=== PATIENT | female | born 1955 | race Two or more races ===

== ENCOUNTER 2017-04-12 00:07 | Inpatient (IN) | payer BC ==
[2017-04-12] VITALS (10 sets, daily range): BP systolic 157–188; BP diastolic 67–79; PULSE 72–95; RESP 16–18; TEMP 98.2; Ht 165.1 cm; Wt 104.5 kg
[~2017-04-12] VITALS: Ht 165.1 cm; Wt 104.5 kg
[~2017-04-12 00:07] MED LIST: ADV25050 INH; AMARYL; ASPI81TA3 PO; CYCL-319 PO; HYDR-906 PO; IBUP400T22 PO; INSULIN 70/30; MELOXICAM; MICARDIS; SINGULAR; VERAPAMIL; [UNRECOGNIZED DRUG - OTHER]
[2017-04-12 00:57] LABS: BASOPHILS % 0.5 % (0.0-2.0); EOSINOPHILS % 0.1 % (0.0-7.0); HEMOGLOBIN 10.4 g/dl (12.0-16.0); LYMPHOCYTES # 0.8 10^3/ul (0.8-2.9); LYMPHOCYTES % 9.2 % (15.0-51.0); MEAN CORPUSCULAR HGB CONC 31.5 g/dl (32.0-37.0); MEAN CORPUSCULAR VOLUME 85.7 fl (82.0-101.0); MEAN PLATELET VOLUME 10.7 fl (7.4-10.4); MONOCYTE # 0.1 10^3/ul (0.3-0.9); MONOCYTES % 1.4 % (0.0-11.0); NEUTROPHIL # 7.7 10^3/ul (1.6-7.5); PLATELET COUNT 361 10^3/UL (140-415); RED BLOOD COUNT 3.85 10^6/ul (4.20-5.40); RED CELL DISTRIBUTION WIDTH 13.7 % (11.5-14.5); WHITE BLOOD COUNT 8.7 10^3/ul (4.8-10.8)
[2017-04-12 01:16] LABS: INR 0.88; PARTIAL THROMBOPLASTIN TIME 23.8 Sec (25.0-35.0); PROTIME 11.9 Sec (12.2-14.2); PT RATIO 0.9
[2017-04-12 01:23] LABS: ALBUMIN/GLOBULIN RATIO 0.95; BILIRUBIN,INDIRECT 0.2 mg/dl (0-1.1); BILIRUBIN,TOTAL 0.2 mg/dl (0.2-1.3); CALCIUM 10.2 mg/dl (8.4-10.2); CREATININE 1.17 mg/dl (0.44-1.00); POTASSIUM 4.5 mmol/L (3.5-5.1); TOTAL PROTEIN 8.2 g/dl (6.1-8.1)
--- NOTE | 2017-04-12 01:26 | RADRPT ---
PROCEDURE: CT Brain without contrast. CLINICAL INDICATION: Focal neurological deficit. TECHNIQUE: A CT of the brain was performed on a multislice detector CT scanner utilizing axial sec tions from the skull base through the vertex without contrast. Images were reviewed on a [facility] [employer] PACS workstation. Exam CTDlvol = 45 mGy and DLP = 720 mGy-cm. One of the following 3 dose red uction techniques were used: Automated exposure control; adjustment of the mA and/or kV according to patient size; or use of iterative reconstruction technique. COMPARISON: Fourth 38 20:15 FINDINGS: There is age appropriate central and peripheral atrophy. There is no midline shift. There is a mil d degree of supratentorial periventricular and subcortical white matter hypodensities. There is no definite acute stroke. There is small old right thalamic lacunar infarct. There is no intracranial hemorrhage or abnormal extra-axial fluid collection. Visualized paranasal sinuses are clear. IMPRESSION: 1. No acute intracranial abnormality. 2. Small old right thalamic lacunar infarct. 3. Nonspecific white matter changes most commonly seen with microvascular ischemic disease. Findings reported to Dr. Zepeda on 04/12/2017 1:24:56 AM. RPTAT: HMVK .Abraham Moffett MD, Date Time Electronically viewed and signed by .Abraham Moffett MD, MD on 04/12/2017 01:26 .K/
[2017-04-12 01:33] LABS: TROPONIN-I 0.018 ng/ml (0.00-0.12)
--- NOTE | 2017-04-12 01:42 | RADRPT ---
PROCEDURE: Portable chest x-ray. CLINICAL INDICATION: Stroke. TECHNIQUE: Portable AP view of the chest. COMPARISON: 10/23/2014. FINDINGS: No pulmonary edema or conolidation is identified. The cardiac silhouette is magnified. There are ao rtic calcifications. No pleural effusion is seen. There is no pneumothorax. IMPRESSION: 1. No evidence of acute cardiopulmonary disease. 2. Aortic atherosclerosis RPTAT: HTAR .Alirio Aquino MD, MD Date Time Electronically viewed and signed by .Alirio Aquino MD, MD on 04/12/2017 01:41 .R/
[2017-04-12] MEDS ORDERED: LORAZEPAM 2 MG INJ IV ONE (02:00)
--- NOTE | 2017-04-12 02:54 | ERA ---
ER Documentation Chief Complaint Date/Time DATE: 04/12/17 TIME: 02:53 Chief Complaint KASSY RA89 from home,c/o left facial, left arm and left leg numbness HPI 61-year-old female brought in by home by ambulance for complaints of left facial left arm and left leg numbness. Denies any dysarthria. Said it is it started 6 hours ago and is resolved upon arrival. No fevers no chills. History of previous TIA in the past. No chest pain. No shortness of breath. No other current complaints. ROS All systems reviewed and are negative except as per history of present illness. Medications Home Meds Active Scripts Ibuprofen* (Motrin*) 400 Mg Tab, 400 MG PO Q6H Y for PAIN AND OR ELEVATED TEMP, #30 TAB Prov:ILIANA ECHEVERRIA [employer] PERFORMER 03/27/16 Cyclobenzaprine Hcl* (Cyclobenzaprine Hcl*) 10 Mg Tablet, 10 MG PO TID, #15 TAB Prov:ILIANA ECHEVERRIA NP 03/27/16 Hydrocodone/Acetaminophen ([place] 5-325 Tablet) 1 Each Tablet, 1 TAB PO Q6H Y for PAIN, #20 TAB Prov:ILIANA ECHEVERRIA [employer]ATIC PERFORMER 03/27/16 Reported Medications [Insulin 70/30] No Conflict Check 10/23/14 [Micardis] No Conflict Check 10/23/14 [Meloxicam] No Conflict Check 10/23/14 [Singular] No Conflict Check 10/23/14 Salmeterol Xinaf/Fluticasone* (Advair*) 250-50 Diskus Inhaler, 1 INH INH BID, INH 10/23/14 [Verapamil] No Conflict Check 10/23/14 Aspirin* (Aspirin* Chew) 81 Mg Tab.chew, 81 MG PO DAILY, TAB.CHEW 10/23/14 [Amaryl] No Conflict Check 10/23/14 [Glucovace] No Conflict Check, DAILY 10/23/14 Allergies Allergies: Coded Allergies: insulin glargine (Verified Adverse Reaction, Unknown, SEVERE HEADACHE, 10/25) PMhx/Soc History of Surgery: Yes (Inguinal Hernia ) Anesthesia Reaction: No Hx Neurological Disorder: No Hx Respiratory Disorders: Yes (Asthma) Hx Cardiac Disorders: Yes (HTN) Hx Psychiatric Problems: No Hx Miscellaneous Medical Probl: No Hx Alcohol Use: No Hx Substance Use: No Hx Tobacco Use: No Smoking Status: Never smoker Physical Exam Vitals Vital Signs Date Time Temp Pulse Resp B/P Pulse Ox O2 Delivery O2 Flow Rate FiO2 04/12/17 00:30 Nasal Cannula 04/12/17 00:30 99.2 82 18 147/75 98 Room Air 04/12/17 00:10 99.2 82 18 183/83 96 Physical Exam Const: [] Head: Atraumatic Eyes: Normal Conjunctiva ENT: Normal External Ears, Nose and Mouth. Neck: Full range of motion..~ No meningismus. Resp: Clear to auscultation bilaterally Cardio: Regular rate and rhythm, no murmurs Abd: Soft, non tender, non distended. Normal bowel sounds Skin: No petechiae or rashes Back: No midline or flank tenderness Ext: No cyanosis, or edema Neur: Awake and alert Psych: Normal Mood and Affect Result Diagram: 04/12/174404/12/1744 Results 24 hrs Laboratory Tests Test 04/12/17 00:45 White Blood Count 8.710^3/ul Red Blood Count 3.8510^6/ul Hemoglobin 10.4g/dl Hematocrit 33.0% Mean Corpuscular Volume 85.7fl Mean Corpuscular Hemoglobin 27.0pg Mean Corpuscular Hemoglobin Concent 31.5g/dl Red Cell Distribution Width 13.7% Platelet Count 43723^3/UL Mean Platelet Volume 10.7fl Neutrophils % 88.0% Lymphocytes % 9.2% Monocytes % 1.4% Eosinophils % 0.1% Basophils % 0.5% Nucleated Red Blood Cells % 0.0/100WBC Neutrophils # 7.710^3/ul Lymphocytes # 0.810^3/ul Monocytes # 0.110^3/ul Eosinophils # 0.010^3/ul Basophils # 0.010^3/ul Nucleated Red Blood Cells # 0.010^3/ul Prothrombin Time 11.9Sec Prothrombin Time Ratio 0.9 INR International Normalized Ratio 0.88 Activated Partial Thromboplast Time 23.8Sec Sodium Level 139mmol/L Potassium Level 4.5mmol/L Chloride Level 102mmol/L Carbon Dioxide Level 26mmol/L Anion Gap 16 Blood Urea Nitrogen 32mg/dl Creatinine 1.17mg/dl Glucose Level 334mg/dl Calcium Level 10.2mg/dl Total Bilirubin 0.2mg/dl Direct Bilirubin 0.00mg/dl Indirect Bilirubin 0.2mg/dl Aspartate Amino Transf (AST/SGOT) 14IU/L Alanine Aminotransferase (ALT/SGPT) 23IU/L Alkaline Phosphatase 93IU/L Troponin I 0.018ng/ml Total Protein 8.2g/dl Albumin 4.0g/dl Globulin 4.20g/dl Albumin/Globulin Ratio 0.95 Current Medications Medications (Trade) Dose Ordered Sig/Rad Route PRN Reason Start Time Stop Time Status Last Admin Dose Admin Lorazepam (Ativan) 1 mg ONCE ONCE IV 04/12/17 02:00 04/12/17 02:01 DC 04/12/17 02:29 Procedures/MDM EKG: Rate/Rhythm: [Normal Sinus Rhythm] QRS, ST, T-waves: [No changes consistent w/ acute ischemia] Impression: [No evidence of ischemia or arrhythmia] Chest X-ray 1V Interpreted by me: Soft Tissue: No acute abnormalities Bones: No acute abnormalities Mediastinum/Cardiac Silhouette/Lungs: [No acute abnormalities] Medical decision makin-year-old female comes in essentially for TIA-like symptomatology. Symptoms of since resolved. At this point clinically stable for outpatient management. Patient will be admitted to telemetry to the hospitalist. Departure Diagnosis: Primary Impression: TIA (transient ischemic attack) Qualified Code: G45.9 - Transient cerebral ischemia, unspecified type Condition: Serious CHELY TRUONG Apr 12, 2017 02:54
[2017-04-12] MEDS ORDERED: DOCUSATE SODIUM 100 MG CAP PO PRN (03:30)
[2017-04-12] MEDS ORDERED: BISACODYL (EC) 5 MG TAB PO PRN (03:30)
[2017-04-12] MEDS ORDERED: NACL 0.9% 3 ML SYG IV SCH (03:30)
[2017-04-12] MEDS ORDERED: ACETAMINOPHEN 325 MG TAB PO PRN (03:30)
[2017-04-12] MEDS ORDERED: ONDANSETRON 4 MG INJ IV PRN (03:30)
[2017-04-12] MEDS ORDERED: MELO-210 PO (03:32)
[2017-04-12] MEDS ORDERED: NOVO7030 SC (03:32)
[2017-04-12] MEDS ORDERED: ADV25050 INHALATION (03:32)
[2017-04-12] MEDS ORDERED: TOLT4CAP13 PO (03:32)
[2017-04-12] MEDS ORDERED: VERA100C4 PO (03:32)
[2017-04-12] MEDS ORDERED: LOSA1TAB3 PO (03:32)
[2017-04-12] MEDS ORDERED: GABA100C14 PO (03:32)
[2017-04-12] MEDS ORDERED: MONT10TA24 PO (03:32)
[2017-04-12] MEDS ORDERED: GLIM4TAB PO (03:32)
[2017-04-12] MEDS ORDERED: LOSA1TAB20 PO (03:32)
[2017-04-12] MEDS ORDERED: IPRA4AER INHALATION (03:32)
[2017-04-12] MEDS ORDERED: ATOR40TA68 PO (03:32)
[2017-04-12] MEDS ORDERED: ESOM40CA PO (03:32)
[2017-04-12] MEDS ORDERED: ERGO500037 PO (03:32)
[2017-04-12] MEDS ORDERED: CLOP75TA4 PO (03:32)
[2017-04-12] MEDS ORDERED: METF-480 PO (03:32)
[2017-04-12] MEDS ORDERED: GLUCOSE GEL 15 GRAM TUBE BUCCAL PRN (05:45)
[2017-04-12] MEDS ORDERED: GLUCOSE GEL 15 GRAM TUBE PO PRN ×2 (05:45)
[2017-04-12] MEDS ORDERED: GLUCAGON 1 MG INJ IM PRN (05:45)
[2017-04-12] MEDS ORDERED: DEXTROSE 50% 50 ML SYRINGE IV PRN ×2 (05:45)
[2017-04-12 06:56] LABS: CHOL/HDL RATIO 6.2 RATIO
[2017-04-12 07:53] LABS: THYROID STIMULATING HORMONE 0.877 MIU/L (0.465-4.680)
[2017-04-12] MEDS: INSULIN ASPART [NOVOLOG] 3 ML PEN SC SCH ×4 (07:57→21:00)
--- NOTE | 2017-04-12 08:35 | HP ---
Date/Time of Note Date/Time of Note DATE: 04/12/17 TIME: 08:28 Assessment/Plan VTE Prophylaxis VTE Prophylaxis Intervention: SCD's Lines/Catheters IV [facility]from [facility] Saline Lock Assessment/Plan Chief Complaint/Hosp Course This is a 61-year-old female being admitted to the telemetry floor for: #1 left-sided weakness: TIA versus hyperlycemic episode At the current time patient's blood pressure has improved, will continue for permissive hypertension. Every 4 hours neuro checks. Carotid Doppler ultrasound. Echocardiogram with Doppler. Will consult neurology. Patient does not want to have an MRI and she states that she gets claustrophobic. I did offer her Ativan as well however patient is still hesitant about getting a. She would like to discuss with neurology will await any further recommendations from neurology. #2 diabetes mellitus: Patient's blood sugars are in the 400s at home. Currently on admission patient's blood sugars were in the 300s. At the current time will provide IV fluid hydration Will put the patient on insulin sliding scale. We will continue to monitor patient's blood sugars. #3 hypertension: At the current time will provide for permissive hypertension for 24 hours. #4 hyperlipidemia: We will check cholesterol panel. Likely will be started on statin. #5 DVT GI prophylaxis: SCDs, acid radha Further treatment strategy will be implemented as per the clinical course Problems: HPI/ROS Admit Date/Time Admit Date/Time Apr 12, 2017 at 02:50 Hx of Present Illness Chief complaint: Left-sided weakness and numbness This is a 61-year-old female who comes in today complaining of left-sided arm weakness and numbness. Patient states that yesterday she had gone to urgent care to receive a cortisone injection for her knee pain. Patient states that upon going home she checked her blood sugar blood sugar was in the 400s. Sometime later she started developing symptoms of left-sided weakness and numbness of the arms and feet and of the face. She states that she has a history of 3 prior strokes. Upon arriving into the ED patient states that her symptoms of pretty much resolved and she feels close to her baseline. Patient also states that she does not want an MRI in the a.m. as she gets claustrophobic. Allergies: Insulin glargine Medications: See DANGELO EGAN Const: As per HPI Eyes : No pain discharge or redness or change in visual acuity ENT: No pain, sore throat, congestion, congestion, dysphagia or discharge Respiratory: No shortness of breath, cough, sputum, wheezing, or pleuritic pain Cardiovascular: No chest pain, palpitation, PND, or edema GI : no change in appetite, abdominal pain, nausea, vomiting, diarrhea, constipation, or change in the color his stool Genitourinary: No dysuria, hematuria, flank pain , discharge or CVA tenderness Musculoskeletal: No joint pain, back pain, neck pain, restricted range of motion in neck or joints Skin: No rash, bruising or hives Neuro: As per HPI Endocrine: As per HPI Psych: No hallucination, depression, anxiety or suicidal ideation PMH/Family/Social Past Medical History CVA 3, diabetes mellitus, hypertension, hyperlipidemia, previous history of clot in the right oximetry Past Surgical History Bypass the right lower extremity, Family History Significant Family History: diabetes, hypertension Social History Smoking Status: Former smoker Exam/Review of Systems Vital Signs Vitals Vital Signs Date Time Temp Pulse Resp B/P Pulse Ox O2 Delivery O2 Flow Rate FiO2 04/12/17 08:00 95 04/12/17 07:22 98.6 18 157/67 99 Room Air Exam Exam General: Patient is a pleasant female lying in bed in no acute distress HEENT: Atraumatic, normocephalic. The pupils are equal, round and reactive. Extraocular motor are intact Neck: Supple with full range of motion. No rigidity or meningismus Chest: Nontender Lungs: Clear to auscultation bilaterally no crackles rales or wheezing Heart: Normal S1-S2, Regular rhythm and rate. No murmur, S3, or S4 Abdomen: Soft , nontender, nondistended , bowel sounds are present. No guarding no rebound tenderness , No masses or organomegaly. No costovertebral temporal angle mass Extremities: Normal to inspection, no edema no cyanosis Neurologic: Normal mental status, speech normal, cranial nerves II through XII are intact, motor and sensory are intact, very mild difference in strength of the bilateral upper and lower extremities. Strength slightly greater on the right upper lower extremity as compared to the left. Labs Result Diagram: 04/12/17 0045 04/12/17 0045 Medications Medications Current Medications Ondansetron HCl (Zofran Inj) 4 mg Q6H PRN IV NAUSEA AND/OR VOMITING; Start at 03:30 Acetaminophen (Tylenol Tab) 650 mg Q6H PRN PO PAIN LEVEL 1-3 OR FEVER; Start 04/12/17 at 03:30 Docusate Sodium (Colace) 100 mg Q12H PRN PO CONSTIPATION; Start 04/12/17 at 03 :30 Bisacodyl (Dulcolax) 5 mg DAILY PRN PO CONSTIPATION; Start 04/12/17 at 03:30 Famotidine (Pepcid) 20 mg Q12 PO ; Start 04/12/17 at 09:00 Diagnostic Test (Pha) (Accu-Chek) 1 ea 02 XX ; Start 04/13/17 at 02:00 Miscellaneous Information 1 ea NOTE XX ; Start 04/12/17 at 05:45 Glucose (Glutose) 15 gm Q15M PRN PO DECREASED GLUCOSE; Start 04/12/17 at 05:45 Glucose (Glutose) 22.5 gm Q15M PRN PO DECREASED GLUCOSE; Start 04/12/17 at 05: 45 Dextrose (D50w Syringe) 25 ml Q15M PRN IV DECREASED GLUCOSE; Start 04/12/17 at 05:45 Dextrose (D50w Syringe) 50 ml Q15M PRN IV DECREASED GLUCOSE; Start 04/12/17 at 05:45 Glucagon (Glucagen) 1 mg Q15M PRN IM DECREASED GLUCOSE; Start 04/12/17 at 05: 45 Glucose (Glutose) 15 gm Q15M PRN BUCCAL DECREASED GLUCOSE; Start 04/12/17 at 05:45 HIRAM TAMEZ Apr 12, 2017 08:35 HIRAM TAMEZ Apr 12, 2017 08:35
[2017-04-12] MEDS ORDERED: FAMOTIDINE 20 MG TAB PO SCH (09:00)
[2017-04-12] MEDS ORDERED: SOD CHLORIDE 0.9% 1,000 ML IV ONE (09:00)
--- NOTE | 2017-04-12 12:01 | PN ---
Date/Time of Note Date/Time of Note DATE: 04/12/17 TIME: 11:58 Assessment/Plan VTE Prophylaxis VTE Prophylaxis Intervention: SCD's Lines/Catheters IV Catheter Type (from Nrsg): Saline Lock Assessment/Plan Assessment/Plan 61 yo F with h/o CAD, DM2, HTN, HL admitted for transient R sided weakness in setting of hyperglycemia. d/dx hyperglycemic episode (?) v TIA TIA w/u with CTA brain (cannot tolerate MRI), TTE, carotid dopplers, tele monitoring cont home DAPT, statin, BPmeds a1c 8s. cont home insulin PT/OT/ST possible dc in 1-2 days pending results of above Subjective 24 Hr Interval Summary Free Text/Dictation Pt states her R arm weakness has resolved. States she got a steroid injection into her knee yesterday and that is what likely cause her blood sugar to be elevated Exam/Review of Systems Vital Signs Vitals Vital Signs Date Time Temp Pulse Resp B/P Pulse Ox O2 Delivery O2 Flow Rate FiO2 04/12/17 08:00 95 04/12/17 07:22 98.6 18 157/67 99 Room Air Exam nad no mrg lungs clear abd soft no rashes 5/5 strength bl UEs a1c 8s NCCT head without acute infarct Results Result Diagram: 04/12/17 0045 04/12/17 0045 Results 24 hrs Laboratory Tests Test 04/12/17 00:45 04/12/17 07:50 White Blood Count 8.7 Red Blood Count 3.85 L Hemoglobin 10.4 L Hematocrit 33.0 L Mean Corpuscular Volume 85.7 Mean Corpuscular Hemoglobin 27.0 L Mean Corpuscular Hemoglobin Concent 31.5 L Red Cell Distribution Width 13.7 Platelet Count 361 Mean Platelet Volume 10.7 #H Neutrophils % 88.0 H Lymphocytes % 9.2 L Monocytes % 1.4 Eosinophils % 0.1 Basophils % 0.5 Nucleated Red Blood Cells % 0.0 Neutrophils # 7.7 H Lymphocytes # 0.8 Monocytes # 0.1 L Eosinophils # 0.0 Basophils # 0.0 Nucleated Red Blood Cells # 0.0 Prothrombin Time 11.9 L Prothrombin Time Ratio 0.9 INR International Normalized Ratio 0.88 Activated Partial Thromboplast Time 23.8 L Sodium Level 139 Potassium Level 4.5 Chloride Level 102 Carbon Dioxide Level 26 Anion Gap 16 Blood Urea Nitrogen 32 H Creatinine 1.17 H Glucose Level 334 H Hemoglobin A1c 8.1 H Calcium Level 10.2 Total Bilirubin 0.2 Direct Bilirubin 0.00 Indirect Bilirubin 0.2 Aspartate Amino Transf (AST/SGOT) 14 L Alanine Aminotransferase (ALT/SGPT) 23 Alkaline Phosphatase 93 Troponin I 0.018 Total Protein 8.2 H Albumin 4.0 Globulin 4.20 H Albumin/Globulin Ratio 0.95 Triglycerides Level 213 H Cholesterol Level 337 H LDL Cholesterol, Calculated 240 HDL Cholesterol 54 Cholesterol/HDL Ratio 6.2 Thyroid Stimulating Hormone (TSH) 0.877 Bedside Glucose 274 H Medications Medications Current Medications Ondansetron HCl (Zofran Inj) 4 mg Q6H PRN IV NAUSEA AND/OR VOMITING; Start at 03:30 Acetaminophen (Tylenol Tab) 650 mg Q6H PRN PO PAIN LEVEL 1-3 OR FEVER; Start 04/12/17 at 03:30 Docusate Sodium (Colace) 100 mg Q12H PRN PO CONSTIPATION; Start 04/12/17 at 03 :30 Bisacodyl (Dulcolax) 5 mg DAILY PRN PO CONSTIPATION; Start 04/12/17 at 03:30 Famotidine (Pepcid) 20 mg Q12 PO Last administered on 04/12/17t 09:17; Admin Dose 20 MG; Start 04/12/17 at 09:00 Diagnostic Test (Pha) (Accu-Chek) 1 ea 02 XX ; Start 04/13/17 at 02:00 Miscellaneous Information 1 ea NOTE XX ; Start 04/12/17 at 05:45 Glucose (Glutose) 15 gm Q15M PRN PO DECREASED GLUCOSE; Start 04/12/17 at 05:45 Glucose (Glutose) 22.5 gm Q15M PRN PO DECREASED GLUCOSE; Start 04/12/17 at 05: 45 Dextrose (D50w Syringe) 25 ml Q15M PRN IV DECREASED GLUCOSE; Start 04/12/17 at 05:45 Dextrose (D50w Syringe) 50 ml Q15M PRN IV DECREASED GLUCOSE; Start 04/12/17 at 05:45 Glucagon (Glucagen) 1 mg Q15M PRN IM DECREASED GLUCOSE; Start 04/12/17 at 05: 45 Glucose (Glutose) 15 gm Q15M PRN BUCCAL DECREASED GLUCOSE; Start 04/12/17 at 05:45 ANTIONE MOE MD Apr 12, 2017 12:01
--- NOTE | 2017-04-12 14:46 | RADRPT ---
Echocardiogram Report Patient Name: PAULIE BLAS Gender: Female Date: 1955 Study Date: 12-Apr-2017 Proofer Prepress: KELIN Location: 3305 Ref. Physician: HIRAM TAMEZ Quality: Good Procedures: Transthoracic echocardiogram with complete 2D, M-Mode, and doppler examination. Indications: Transient Ischemic Attack. 2D/M Mode Doppler Measurement Value Normal Ranges Measurement Value Normal Ranges AoR Diam MM 3.1 cm BARRY Vmax 2.2 cm2 ACS MM 1.9 cm BARRY VTI 2.2 cm2 LA/Ao MM 1.3 AV Peak Perry 1.2 m/sec LA Dimen MM 4.0 cm AV Peak PG 5.8 mmHg LVIDd 2D 4.1 3.5 - 5.6 cm LVOT Peak Perry 0.9 m/sec LVIDs 2D 2.8 2.1 - 4.1 cm LVOT Peak PG 3.2 mmHg LVPWd 2D 1.1 0.6 - 1.1 cm MV E Peak Perry 1.0 m/sec IVSd 2D 1.0 0.6 - 1.1 cm MV A Peak Perry 1.3 m/sec EDV 2D 75.4 cm3 MV E/A 0.8 ESV 2D 22.4 cm3 MV Decel Time 272 msec EF 2D 60.0 50.0 - 65.0 % MV Decel Freestone 4 LVOT Diam 1.9 cm MV E/A 0.8 TR Peak Perry 1.9 m/sec TR Peak PG 15.0 mmHg Findings Left Ventricle: Normal left ventricular systolic function. Normal left ventricular cavity size. Normal left ventricular wall thickness. Ejection fraction is visually estimated at 60 %. Tissue Doppler/Mitral Doppler indices are consistent with impaired relaxation (Stage I diastolic dysfunction). Right Ventricle: Normal right ventricular size. Normal right ventricular systolic function. Left Atrium: Upper limit of normal left atrial size. Right Atrium: The right atrium is normal in size. Atrial Septum: Bubble study was performed with and with out valsalva indicating no evidence of intra atrial shunt. Mitral Valve: Mild mitral annular calcification and posterior MV leaflet noted. Trace mitral regurgitation. Aortic Valve: Normal appearance of the aortic valve. No significant aortic stenosis or insufficiency. Tricuspid Valve: Normal appearance of the tricuspid valve. Estimated peak PA systolic pressure 18 mmHg. There is trace tricuspid regurgitation. Pulmonic Valve: Pulmonic valve not well visualized however velocity is normal. Pericardium: Normal pericardium with no significant pericardial effusion. Aorta: Normal aortic root. IVC: Normal size and normal respiratory collapse consistent with normal right atrial pressure. Conclusions 1.Normal left ventricular systolic function. Normal left ventricular cavity size. Normal left ventricular wall thickness. Ejection fraction is visually estimated at 60 %. Tissue Doppler/Mitral Doppler indices are consistent with impaired relaxation (Stage I diastolic dysfunction). 2.Normal right ventricular size. Normal right ventricular systolic function. 3.Upper limit of normal left atrial size. 4.The right atrium is normal in size. 5.No significant valvular stenosis or regurgitation seen. 6.Normal pericardium with no significant pericardial effusion. 7.Bubble study was performed with and with out valsalva indicating no evidence of intra atrial shunt. Electronically Signed By: Abraham Malcolm 12-Apr-2017 14:45:36 -0700 Patient Name: PAULIE BLAS Study Date: 12-Apr-2017 [id number]
[2017-04-12] MEDS: GABAPENTIN 100 MG CAP PO SCH ×2 (15:28→21:16)
[2017-04-12] MEDS ORDERED: IODIXANOL LOCM 100 ML BTL ONE (16:52)
[2017-04-12] MEDS ORDERED: SOD CHLORIDE 0.9% 100 ML ONE (16:52)
[2017-04-12] MEDS ORDERED: INSULIN ISOPHAN SC SCH (17:05)
--- NOTE | 2017-04-12 17:09 | RADRPT ---
PROCEDURE: US Carotids. CLINICAL INDICATION: Transient ischemic attack. TECHNIQUE: Multiple sonographic of the carotid arteries were obtained utilizing lucia scale imaging . Color and Doppler imaging was performed. The images were reviewed on a PACS workstation. COMPARISON: CTA neck from 10/24/2014. FINDINGS: Location Right Left CCA 73 cm/sec 124 cm/sec Prox ICA 65 cm/sec 108 cm/sec Mid ICA 64 cm/sec 60 cm/sec Dist ICA 49 cm/sec 53 cm/sec ECA 189 cm/sec 114 cm/sec ICA/CCA 0.8 0.9 Antegrade flow is seen within the vertebral arteries bilaterally. Mild scattered atherosclerotic anabel que is present bilaterally.. No hemodynamically significant stenosis or occlusion is identified. IMPRESSION: 1. Mild bilateral atherosclerotic plaque without evidence for hemodynamically significant stenosis - validated velocity measurements with angiographic measurements, velocity criteria are extrapolated from diameter data as defined by the Society of Radiologists in Ultrasound Consensus Conference Radi ology 2003; 229;340-346. This study does indirectly reference the measurement of the distal ICA millie meter as the denominator for stenosis measurement. 2. Antegrade flow seen within the vertebral arteries bilaterally. SRU Consensus Conference Criteria for the Diagnosis of Carotid Artery Stenosis Degree of Stenosis, % ICA PSV, cm/sec Plaque Estimate, % ICA/CCA PSV Ratio Normal <125 None <2.0 <50 <125 <50 <2.0 50 69 125-230 >50 2.0-4.0 >70 but less than near occlusion >230 >50 <4.0 Near occlusion High, low, or undetectable Visible Variable Total occlusion Undetectable Visible, no detectable lumen Not applicable *Cartoid artery stenosis: lucia-scale and Doppler US diagnosis. Society of Radiologists in Ultrasound Consensus Conference. Radiology 2003; 229: 340-346 RPTAT: JJ .Kike Johnson MD, Date Time Electronically viewed and signed by .Kike Johnson MD, on 04/12/2017 17:08 .A/
[2017-04-12] MEDS: INSULIN ASP PROT/ASPART (70/30) PEN SC SCH (17:28)
--- NOTE | 2017-04-12 18:02 | RADRPT ---
PROCEDURE: CT brain with and without contrast CLINICAL INDICATION: Neurologic deficit, stroke TECHNIQUE: CT scan of the Brain with and without contrast was performed with a 64-slice multi dete ctor scanner. Contiguous 5 mm slice thickness transaxial images were acquired from the high vertex to the foramen magnum. The images were reviewed on a PACS workstation. The patient was examined bot h before and following the uncomplicated intravenous administration of 100 cc of Isovue 300. DOSE: C TDI = 44 mGy and the DLP = 630 mGy-cm. One or more of the following dose reduction techniques were u sed: Automated exposure control, Adjustment of the mA and/or kV according to patient size, and/or us e of iterative reconstruction technique. COMPARISON: Head CT earlier today FINDINGS: No acute intracranial hemorrhage, significant mass effect or midline shift. Mild hypoattenuation of the cerebral white matter is compatible with chronic microvascular ischemic changes. Chronic appeari ng right thalamic lacunar infarct. Vascular calcifications. Prominence of the cortical sulci and jaylene tricles are related to mild cerebral volume loss. No significant opacification of the visualized p aranasal sinuses or mastoids. No abnormal parenchymal, dural or leptomeningeal enhancement. IMPRESSION: No significant change since the CT earlier today. No acute intracranial hemorrhage or mass effect. Mild chronic microvascular disease and intracranial atherosclerosis. Chronic appearing right thalamic lacunar infarct. RPTAT: AA .Dmitry Martinez MD, MD Date Time Electronically viewed and signed by .Dmitry Martinez MD, MD on 04/12/2017 18:02 .T/
--- NOTE | 2017-04-12 18:07 | RADRPT ---
PROCEDURE: CTA Neck. CLINICAL INDICATION: Neurologic deficit, stroke TECHNIQUE: The study was performed utilizing a multidetector CT scanner. Thin cut axial sections w ere obtained through the neck with the use of 100 cc of Isovue 370 nonionic intravenous contrast mat erial. Coronal and sagittal maximal intensity projection reformations were obtained. Additional 3D volumetric renderings were created. The images were reviewed on a PACS workstation. The total CTDI vol is 21/24 mGy and the DLP is 710 mGy-cm. One or more of the following dose reduction techniques w ere used: Automated exposure control, Adjustment of the mA and/or kV according to patient size, and/ or use of iterative reconstruction technique. COMPARISON: Correlation carotid ultrasound earlier today FINDINGS: Mild atherosclerotic plaque at the bilateral proximal internal carotid arteries without significant stenosis by NASCET criteria. No significant stenosis or vessel dissection of the bilateral common carotid, bilateral cervical int ernal carotid or bilateral vertebral arteries. IMPRESSION: Patent major cervical arteries. No significant carotid artery stenosis by NASCET criteria. RPTAT: AA .Dmitry Martinez MD, Date Time Electronically viewed and signed by .Dmitry Martinez MD, on 04/12/2017 18:06 .T/
[2017-04-12] MEDS: ALBUTEROL/IPRATROPIUM (NEB) 3 ML AMP HHN SCH (19:28)
[2017-04-12] MEDS: SALMETEROL/FLUTICASONE 250/50 INHA INH SCH (21:00)
[2017-04-12] MEDS ORDERED: ATORVASTATIN 40 MG TAB PO SCH (21:00)
[2017-04-12] MEDS: MONTELUKAST 10 MG TAB PO SCH (22:09)
[2017-04-13] VITALS (11 sets, daily range): BP systolic 121–203; BP diastolic 52–91; PULSE 61–83; RESP 17–20
[2017-04-13 01:29] LABS: ADD UMIC YES; UR ASCORBIC ACID NEGATIVE (NEGATIVE); UR BILIRUBIN (Dip) NEGATIVE (NEGATIVE); UR BLOOD (Dip) 1+ mg/dL (NEGATIVE); UR CLARITY CLEAR (CLEAR); UR COLOR STRAW (YELLOW); UR GLUCOSE (Dip) 3+ mg/dL (NEGATIVE); UR KETONES (Dip) NEGATIVE (NEGATIVE); UR LEUKOCYTE ESTERASE (Dip) NEGATIVE Leu/ul (NEGATIVE); UR NITRITE (Dip) NEGATIVE (NEGATIVE); UR RBC 5 /HPF (0-5); UR SPECIFIC GRAVITY (Dip) 1.036 (1.003-1.030); UR TOTAL PROTEIN (Dip) 1+ mg/dl (NEGATIVE); UR UROBILINOGEN (Dip) NEGATIVE (NEGATIVE)
[2017-04-13 01:55] LABS: BARBITURATES Negative (NEGATIVE); BENZODIAZEPINES Negative (NEGATIVE); CANNABINOIDS Negative (NEGATIVE); COCAINE Negative (NEGATIVE); OPIATES Negative (NEGATIVE)
[2017-04-13] MEDS ORDERED: ACCU-CHEK XX SCH (02:00)
[2017-04-13] MEDS: ACCU-CHEK XX SCH (02:48)
[2017-04-13] MEDS: PANTOPRAZOLE (EC) 40 MG TAB PO SCH (06:07)
[2017-04-13] MEDS: INSULIN ASP PROT/ASPART (70/30) PEN SC SCH ×2 (07:42→17:29)
[2017-04-13] MEDS: ALBUTEROL/IPRATROPIUM (NEB) 3 ML AMP HHN SCH ×4 (08:00→20:04)
[2017-04-13] MEDS: SALMETEROL/FLUTICASONE 250/50 INHA INH SCH ×2 (08:08→21:00)
[2017-04-13] MEDS: HYDROCHLOROTHIAZIDE 25 MG TAB PO SCH (08:08)
[2017-04-13] MEDS: LOSARTAN 50 MG TAB PO SCH (08:09)
[2017-04-13] MEDS: TOLTERODINE (SR) 4 MG CAP PO SCH (08:09)
[2017-04-13] MEDS: GABAPENTIN 100 MG CAP PO SCH ×3 (08:09→21:00)
[2017-04-13] MEDS: CLOPIDOGREL 75 MG TAB PO SCH (08:09)
[2017-04-13] MEDS: INSULIN ASPART [NOVOLOG] 3 ML PEN SC SCH ×4 (08:12→22:15)
[2017-04-13] MEDS: ASPIRIN 81 MG TAB PO SCH (08:17)
[2017-04-13 09:05] LABS: BASOPHIL # 0.1 10^3/ul (0.0-0.1); BASOPHILS % 0.4 % (0.0-2.0); EOSINOPHILS # 0.1 10^3/ul (0.0-0.5); EOSINOPHILS % 0.8 % (0.0-7.0); HEMATOCRIT 36.1 % (37.0-47.0); HEMOGLOBIN 11.5 g/dl (12.0-16.0); LYMPHOCYTES # 1.9 10^3/ul (0.8-2.9); LYMPHOCYTES % 16.1 % (15.0-51.0); MEAN CORPUSCULAR HEMOGLOBIN 27.1 pg (29.0-33.0); MEAN CORPUSCULAR HGB CONC 31.9 g/dl (32.0-37.0); MEAN CORPUSCULAR VOLUME 85.1 fl (82.0-101.0); MEAN PLATELET VOLUME 11.1 fl (7.4-10.4); MONOCYTE # 0.5 10^3/ul (0.3-0.9); MONOCYTES % 4.2 % (0.0-11.0); NEUTROPHIL # 9.3 10^3/ul (1.6-7.5); NEUTROPHILS % 77.8 % (39.0-77.0); PLATELET COUNT 428 10^3/UL (140-415); RED BLOOD COUNT 4.24 10^6/ul (4.20-5.40); RED CELL DISTRIBUTION WIDTH 13.7 % (11.5-14.5)
[2017-04-13 09:17] LABS: ALBUMIN 4.3 g/dl (3.3-4.9); ALBUMIN/GLOBULIN RATIO 1.07; BILIRUBIN,INDIRECT 0.3 mg/dl (0-1.1); BILIRUBIN,TOTAL 0.3 mg/dl (0.2-1.3); CALCIUM 9.7 mg/dl (8.4-10.2); CREATININE 0.87 mg/dl (0.44-1.00); MAGNESIUM 1.7 mg/dl (1.7-2.5); POTASSIUM 4.5 mmol/L (3.5-5.1); TOTAL PROTEIN 8.3 g/dl (6.1-8.1)
--- NOTE | 2017-04-13 14:34 | PN ---
Date/Time of Note Date/Time of Note DATE: 04/13/17 TIME: 14:34 Assessment/Plan VTE Prophylaxis VTE Prophylaxis Intervention: SCD's Lines/Catheters IV Catheter Type (from Nrs): Saline Lock Urinary Cath still in place: No Assessment/Plan Assessment/Plan 61 yo F with h/o CAD, DM2, HTN, HL admitted for transient R sided weakness in setting of hyperglycemia. d/dx hyperglycemic episode (?) v TIA TIA w/u with CTA brain (cannot tolerate MRI), TTE, carotid dopplers, tele monitoring-->all negative cont home DAPT, statin, BPmeds a1c 8s. cont home insulin PT/ST evals done. OT eval pending. likely dc tomorrow Subjective 24 Hr Interval Summary Free Text/Dictation feels like strength is back to normal SR on tele Exam/Review of Systems Vital Signs Vitals Vital Signs Date Time Temp Pulse Resp B/P Pulse Ox O2 Delivery O2 Flow Rate FiO2 04/13/17 12:00 69 04/13/17 11:50 18 04/13/17 11:40 97.8 128/66 98 04/13/17 08:47 21 04/12/17 18:23 Room Air Intake and Output 04/12/17 04/12/17 04/13/17 15:00 23:00 07:00 Intake Total 350 ml Balance 350 ml Exam nad no mrg lungs clear abd soft no rashes 5/5 strength bl UEs all neurovascular imaging negative Results Result Diagram: 04/13/17 0750 04/13/17 0750 Results 24 hrs Laboratory Tests Test 04/12/17 17:22 04/12/17 21:21 04/12/17 21:30 04/13/17 02:33 Bedside Glucose 282 H 294 H 452 *H Urine Color STRAW Urine Clarity CLEAR Urine pH 5.0 Urine Specific [place] 1.036 H Urine Ketones NEGATIVE Urine Nitrite NEGATIVE Urine Bilirubin NEGATIVE Urine Urobilinogen NEGATIVE Urine Leukocyte Esterase NEGATIVE Urine Microscopic RBC 5 Urine Microscopic WBC 1 Urine Hemoglobin 1+ H Urine Glucose 3+ H Urine Total Protein 1+ H Urine Opiates Screen Negative Urine Barbiturates Negative Urine Amphetamines Screen Negative Urine Benzodiazepines Screen Negative Urine Cocaine Screen Negative Urine Cannabinoids Negative Test 04/13/17 02:37 04/13/17 07:37 04/13/17 07:50 04/13/17 11:32 Bedside Glucose 327 H 322 H 309 H White Blood Count 12.0 #H Red Blood Count 4.24 Hemoglobin 11.5 L Hematocrit 36.1 L Mean Corpuscular Volume 85.1 Mean Corpuscular Hemoglobin 27.1 L Mean Corpuscular Hemoglobin Concent 31.9 L Red Cell Distribution Width 13.7 Platelet Count 428 H Mean Platelet Volume 11.1 H Neutrophils % 77.8 H Lymphocytes % 16.1 Monocytes % 4.2 Eosinophils % 0.8 Basophils % 0.4 Nucleated Red Blood Cells % 0.0 Neutrophils # 9.3 H Lymphocytes # 1.9 Monocytes # 0.5 Eosinophils # 0.1 Basophils # 0.1 Nucleated Red Blood Cells # 0.0 Sodium Level 139 Potassium Level 4.5 Chloride Level 102 Carbon Dioxide Level 23 Anion Gap 19 H Blood Urea Nitrogen 25 H Creatinine 0.87 Glucose Level 307 H Calcium Level 9.7 Magnesium Level 1.7 Total Bilirubin 0.3 Direct Bilirubin 0.00 Indirect Bilirubin 0.3 Aspartate Amino Transf (AST/SGOT) 14 L Alanine Aminotransferase (ALT/SGPT) 19 Alkaline Phosphatase 102 Total Protein 8.3 H Albumin 4.3 Globulin 4.00 H Albumin/Globulin Ratio 1.07 Medications Medications Current Medications Ondansetron HCl (Zofran Inj) 4 mg Q6H PRN IV NAUSEA AND/OR VOMITING; Start at 03:30 Acetaminophen (Tylenol Tab) 650 mg Q6H PRN PO PAIN LEVEL 1-3 OR FEVER; Start 04/12/17 at 03:30 Docusate Sodium (Colace) 100 mg Q12H PRN PO CONSTIPATION; Start 04/12/17 at 03 :30 Bisacodyl (Dulcolax) 5 mg DAILY PRN PO CONSTIPATION Last administered on 06:11; Admin Dose 5 MG; Start 04/12/17 at 03:30 Diagnostic Test (Pha) (Accu-Chek) 1 ea 02 XX Last administered on 04/13/17 02 :48; Admin Dose 1 EA; Start 04/13/17 at 02:00 Miscellaneous Information 1 ea NOTE XX ; Start 04/12/17 at 05:45 Glucose (Glutose) 15 gm Q15M PRN PO DECREASED GLUCOSE; Start 04/12/17 at 05:45 Glucose (Glutose) 22.5 gm Q15M PRN PO DECREASED GLUCOSE; Start 04/12/17 at 05: 45 Dextrose (D50w Syringe) 25 ml Q15M PRN IV DECREASED GLUCOSE; Start 04/12/17 at 05:45 Dextrose (D50w Syringe) 50 ml Q15M PRN IV DECREASED GLUCOSE; Start 04/12/17 at 05:45 Glucagon (Glucagen) 1 mg Q15M PRN IM DECREASED GLUCOSE; Start 04/12/17 at 05: 45 Glucose (Glutose) 15 gm Q15M PRN BUCCAL DECREASED GLUCOSE; Start 04/12/17 at 05:45 Aspirin (Aspirin) 81 mg DAILY PO Last administered on 04/13/17 08:17; Admin Dose 81 MG; Start 04/13/17 at 09:00 Atorvastatin Calcium (Lipitor) 40 mg QHS PO Last administered on 04/12/17 21: 16; Admin Dose 40 MG; Start 04/12/17 at 21:00 Clopidogrel Bisulfate (plaVIX) 75 mg DAILY PO Last administered on 04/13/17 08:09; Admin Dose 75 MG; Start 04/13/17 at 09:00 Ergocalciferol (Drisdol) 50,000 unit Q7D PO ; Start 04/17/17 at 09:00 Gabapentin (Neurontin) 100 mg TID PO Last administered on 04/13/17 12:36; Admin Dose 100 MG; Start 04/12/17 at 13:00 Montelukast Sodium (Singulair) 10 mg QHS PO Last administered on 04/12/17 22: 09; Admin Dose 10 MG; Start 04/12/17 at 21:00 Salmeterol Xinafoate/ Fluticasone (Advair 250/50 Diskus) 1 inh BID INH Last administered on 04/13/17 08:08; Admin Dose 1 INH; Start 04/12/17 at 21:00 Tolterodine Tartrate (Detrol La) 4 mg DAILY PO Last administered on 04/13/17 08:09; Admin Dose 4 MG; Start 04/13/17 at 09:00 Pantoprazole (Protonix Tab) 40 mg DAILY@06 PO Last administered on 04/13/17 06:07; Admin Dose 40 MG; Start 04/13/17 at 06:00 Losartan Potassium (Cozaar) 100 mg DAILY PO Last administered on 04/13/17 08: 09; Admin Dose 100 MG; Start 04/13/17 at 09:00 Hydrochlorothiazide (Hydrochlorothiazide) 25 mg DAILY PO Last administered on 04/13/17 08:08; Admin Dose 25 MG; Start 04/13/17 at 09:00 ANTIONE MOE MD Apr 13, 2017 14:34
[2017-04-13 17:08] LABS: ADD UMIC YES; UR ASCORBIC ACID NEGATIVE (NEGATIVE); UR BACTERIA FEW /HPF (NONE SEEN); UR BILIRUBIN (Dip) NEGATIVE (NEGATIVE); UR BLOOD (Dip) NEGATIVE (NEGATIVE); UR CLARITY SLIGHTLY CLOUDY (CLEAR); UR COLOR YELLOW (YELLOW); UR GLUCOSE (Dip) 2+ mg/dL (NEGATIVE); UR KETONES (Dip) NEGATIVE (NEGATIVE); UR LEUKOCYTE ESTERASE (Dip) 3+ Leu/ul (NEGATIVE); UR NITRITE (Dip) NEGATIVE (NEGATIVE); UR NONSQUAMOUS EPITHELIAL CELL 1 /HPF (NONE SEEN); UR RBC 3 /HPF (0-5); UR SPECIFIC GRAVITY (Dip) 1.017 (1.003-1.030); UR SQUAMOUS EPITHELIAL CELL MODERATE /HPF (FEW); UR TOTAL PROTEIN (Dip) 1+ mg/dl (NEGATIVE); UR UROBILINOGEN (Dip) NEGATIVE (NEGATIVE)
[2017-04-13] MEDS ORDERED: ATORVASTATIN 80 MG TAB PO SCH (21:00)
[2017-04-13] MEDS: MONTELUKAST 10 MG TAB PO SCH (21:00)
[2017-04-14 00:27] VITALS: BP 137/61; RESP 80
[2017-04-14 00:42] VITALS: PULSE 80
[2017-04-14] MEDS: ACCU-CHEK XX SCH (02:30)
[2017-04-14 04:02] VITALS: BP 118/76; RESP 20
[2017-04-14 04:35] VITALS: PULSE 68
[2017-04-14] MEDS: PANTOPRAZOLE (EC) 40 MG TAB PO SCH (06:45)
[2017-04-14 08:00] VITALS: PULSE 78
[2017-04-14 08:09] VITALS: BP 143/76; RESP 18
[2017-04-14] MEDS: TOLTERODINE (SR) 4 MG CAP PO SCH (08:10)
[2017-04-14] MEDS: LOSARTAN 50 MG TAB PO SCH (08:11)
[2017-04-14] MEDS: GABAPENTIN 100 MG CAP PO SCH (08:11)
[2017-04-14] MEDS: HYDROCHLOROTHIAZIDE 25 MG TAB PO SCH (08:11)
[2017-04-14] MEDS: ASPIRIN 81 MG TAB PO SCH (08:11)
[2017-04-14] MEDS: CLOPIDOGREL 75 MG TAB PO SCH (08:11)
[2017-04-14] MEDS: INSULIN ASP PROT/ASPART (70/30) PEN SC SCH (08:19)
[2017-04-14] MEDS: INSULIN ASPART [NOVOLOG] 3 ML PEN SC SCH (08:21)
[2017-04-14] MEDS: ALBUTEROL/IPRATROPIUM (NEB) 3 ML AMP HHN SCH (08:25)
[2017-04-14] MEDS ORDERED: ATOR80TA75 PO (08:41)
--- NOTE | 2017-04-14 08:45 | DS ---
Date/Time of Note Date/Time of Note DATE: 04/14/17 TIME: 08:43 Discharge Summary Admission/Discharge Info Admit Date/Time Apr 12, 2017 at 02:50 Discharge Date/Time Discharge Diagnosis TIA v symptomatic hyperglycemia Patient Condition: Stable Consults ST, PT, OT Procedures TTE 04.12 Conclusions 1. Normal left ventricular systolic function. Normal left ventricular cavity size. Normal left ventricular wall thickness. Ejection fraction is visually estimated at 60 %. Tissue Doppler/Mitral Doppler indices are consistent with impaired relaxation (Stage I diastolic dysfunction). 2. Normal right ventricular size. Normal right ventricular systolic function. 3. Upper limit of normal left atrial size. 4. The right atrium is normal in size. 5. No significant valvular stenosis or regurgitation seen. 6. Normal pericardium with no significant pericardial effusion. 7. Bubble study was performed with and with out valsalva indicating no evidence of intra atrial shunt. Head CT wwo 04.12 IMPRESSION: No significant change since the CT earlier today. No acute intracranial hemorrhage or mass effect. Mild chronic microvascular disease and intracranial atherosclerosis. Chronic appearing right thalamic lacunar infarct. Neck CTA 04.12 IMPRESSION: Patent major cervical arteries. No significant carotid artery stenosis by NASCET criteria carotid dopplers 04.12 FINDINGS: Antegrade flow is seen within the vertebral arteries bilaterally. Mild scattered atherosclerotic plaque is present bilaterally.. No hemodynamically significant stenosis or occlusion is identified. IMPRESSION: 1. Mild bilateral atherosclerotic plaque without evidence for hemodynamically significant stenosis - validated velocity measurements with angiographic measurements, velocity criteria are extrapolated from diameter data as defined by the Society of Radiologists in Ultrasound Consensus Conference Radiology 2003 ; 229;340-346. This study does indirectly reference the measurement of the distal ICA diameter as the denominator for stenosis measurement. 2. Antegrade flow seen within the vertebral arteries bilaterally. LABS a1c 8.1 lipid profile: TC 337, TG 213, LDL 240, HDL 54 Telemetry x 48 hours: no AFib Hx of Present Illness Chief complaint: Left-sided weakness and numbness This is a 61-year-old female who comes in today complaining of left-sided arm weakness and numbness. Patient states that yesterday she had gone to urgent care to receive a cortisone injection for her knee pain. Patient states that upon going home she checked her blood sugar blood sugar was in the 400s. Sometime later she started developing symptoms of left-sided weakness and numbness of the arms and feet and of the face. She states that she has a history of 3 prior strokes. Upon arriving into the ED patient states that her symptoms of pretty much resolved and she feels close to her baseline. Patient also states that she does not want an MRI in the a.m. as she gets claustrophobic. Allergies: Insulin glargine Medications: See MAR Hospital Course Pt admitted for R sided weakness, resolved within several hours of admission. Unclear if 2/2 TIA v hyperglycemia from recent CSI to knee. Regardless, pt underwent neurovascular imaging with contrast enhanced CT of brain/head/neck which did not reveal any acute infarct however an old R sided stroke and microvascular disease was noted. Pt seen by PT/OT/ST, no significant deficients seen. Regarding risk factor evaluation, a1c slightly high at 8.1, defer insulin titration to PCP. Also LDL 240 so statin dose increased from atorva 40 to atorva 80. SBP 120s-180s, pt would likely benefit from tighter BP control. As we did not know her verapamil dose, titration should be deferred to PCP. copy of this dc summary given to patient and personally faxed to PCP's office Home Meds Active Scripts Ibuprofen* (Motrin*) 400 Mg Tab, 400 MG PO Q6H Y for PAIN AND OR ELEVATED TEMP, #30 TAB Prov:ILIANA ECHEVERRIA NP 03/27/16 Hydrocodone/Acetaminophen ([place] 5-325 Tablet) 1 Each Tablet, 1 TAB PO Q6H Y for PAIN, #20 TAB Prov:ILIANA ECHEVERRIA NP 03/27/16 Reported Medications Verapamil Hcl* (Verapamil ER*) Unknown Strength Cap24h.pel, PO DAILY, CAP 04/12/17 Albuterol/Ipratropium* (Combivent Respimat*) 20-100 Mcg/Inh - 4 Gm Aer.w.adap, 1 PUFF INHALATION QID, #1 INHALER 04/12/17 Esomeprazole Mag Trihydrate (Nexium) 40 Mg Capsule.dr, 40 MG PO DAILY, #30 CAP 04/12/17 Tolterodine Tartrate* (Tolterodine Tartrate* ER) 4 Mg Cap.er.24h, 4 MG PO DAILY , #30 CAP 04/12/17 Losartan-Hydrochlorothiazide (Losartan-HCTZ) 100-25 Mg Tab, 1 TAB PO DAILY, TAB 04/12/17 Montelukast Sodium* (Montelukast Sodium*) 10 Mg Tablet, 10 MG PO QHS, #30 TAB 04/12/17 Clopidogrel Bisulfate* (Clopidogrel Bisulfate*) 75 Mg Tablet, 75 MG PO DAILY, # 30 TAB 04/12/17 Atorvastatin* (Atorvastatin*) 40 Mg Tablet, 40 MG PO QHS, #30 TAB 04/12/17 Meloxicam* (Mobic*) 15 Mg Tablet, 15 MG PO DAILY, #30 TAB 04/12/17 Gabapentin* (Gabapentin*) 100 Mg Capsule, 100 MG PO TID, #90 CAP 04/12/17 Metformin* (Glucophage*) 850 Mg Tablet, 850 MG PO WITH BREAKFAST DINNE, #30 TAB 04/12/17 Insulin Isophan/Regular (Humulin 70/30) 100 Units/Ml Susp, 20 UNIT SC AC BREAKFAST DINNER, EA 04/12/17 Ergocalciferol (Vitamin D2) (VITAMIN D2) 50,000 Unit Capsule, 88574 UNIT PO, CAP 04/12/17 Glimepiride* (Glimepiride*) 4 Mg Tablet, 4 MG PO WITH BREAKFAST DINNE, TAB 04/12/17 Salmeterol Xinaf/Fluticasone* (Advair*) 250-50 Diskus Inhaler, 1 INH INH BID, INH 10/23/14 Aspirin* (Aspirin* Chew) 81 Mg Tab.chew, 81 MG PO DAILY, TAB.CHEW 10/23/14 Discontinued Reported Medications Losartan/Hydrochlorothiazide (Hyzaar 50-12.5 Tablet) 1 Each Tablet, PO, TAB 04/12/17 Salmeterol Xinaf/Fluticasone* (Advair*) 250-50 Diskus Inhaler, 1 INH INHALATION BID, #1 INHALER 04/12/17 [Insulin 70/30] No Conflict Check 10/23/14 [Micardis] No Conflict Check 10/23/14 [Meloxicam] No Conflict Check 10/23/14 [Singular] No Conflict Check 10/23/14 [Verapamil] No Conflict Check 10/23/14 [Amaryl] No Conflict Check 10/23/14 [Glucovace] No Conflict Check, DAILY 10/23/14 Discontinued Scripts Cyclobenzaprine Hcl* (Cyclobenzaprine Hcl*) 10 Mg Tablet, 10 MG PO TID, #15 TAB Prov:ILIANA ECHEVERRIA NP 03/27/16 Follow-up Plan PCP within 7 days for f/u for BP med eval and consideration for increase in insulin dosing Primary Care Provider Lorena Montalvo Time spent on discharge: > 30 minutes Pending Labs Laboratory Tests Test 04/13/17 11:32 04/13/17 16:30 04/13/17 17:24 04/13/17 21:57 Bedside Glucose 309mg/dL (70-220) 238mg/dL (70-220) 252mg/dL (70-220) Urine Color YELLOW (YELLOW) Urine Clarity SLIGHTLY CLOUDY (CLEAR) Urine pH 5.0 (5.0-9.0) Urine Specific [place] 1.017 (1.003-1.030) Urine Ketones NEGATIVEmg/dL (NEGATIVE) Urine Nitrite NEGATIVEmg/dL (NEGATIVE) Urine Bilirubin NEGATIVEmg/dL (NEGATIVE) Urine Urobilinogen NEGATIVEmg/dL (NEGATIVE) Urine Leukocyte Esterase 3+Lyubov/ul (NEGATIVE) Urine Microscopic RBC 3/HPF (0-5) Urine Microscopic WBC 36/HPF (0-5) Urine Squamous Epithelial Cells MODERATE/HPF (FEW) Urine Bacteria FEW/HPF (NONE SEEN) Urine Hemoglobin NEGATIVEmg/dL (NEGATIVE) Urine Glucose 2+mg/dL (NEGATIVE) Urine Total Protein 1+mg/dl (NEGATIVE) Test 04/14/17 02:37 04/14/17 08:02 Bedside Glucose 136mg/dL (70-220) 231mg/dL (70-220) ANTIONE MOE MD Apr 14, 2017 08:45
--- NOTE | 2017-04-14 09:18 | PDOCDIS ---
Discharge Instructions DIAGNOSIS Discharge Diagnosis TIA v symptomatic hyperglycemia CONDITION Patient Condition: Stable HOME CARE INSTRUCTIONS: Diet Instructions: Low Fat /Cholesterol FOLLOW UP/APPOINTMENTS Follow-up Plan Follow up with your regular doctor within 7 days to see if your insulin and blood pressure medications needs to be increased I increased the dose of your cholesterol medicine (atorvastatin) as your cholesterol when we checked it here was high. You can pick remover this new higher dose at your regular pharmacy. If you start to experience muscle cramps or dark urine on this higher dose let your regular doctor know right away. ANTIONE MOE MD Apr 14, 2017 09:18
[2017-04-14] MEDS: SALMETEROL/FLUTICASONE 250/50 INHA INH SCH (09:35)
[2017-04-17] MEDS ORDERED: ERGOCALCIFEROL 50,000 UNIT CAP PO SCH (09:00)
== END 2017-04-14 11:52 | disposition home or self-care (01) | DRG 69 ==
LOC: E/R 00:07 → MS3 02:50 → MS4 18:16
PROVIDERS: ADMIT Family Medicine; ATTEND Family Medicine
DX: G45.9 Transient cerebral ischemic attack, unspecified (principal); E11.65 Type 2 diabetes mellitus with hyperglycemia; I10 Essential (primary) hypertension; E78.5 Hyperlipidemia, unspecified; I25.10 Atherosclerotic heart disease of native coronary artery without angina pectoris; Z79.4 Long term (current) use of insulin; Z79.82 Long term (current) use of aspirin; Z87.891 Personal history of nicotine dependence; Z86.73 Personal history of transient ischemic attack (TIA), and cerebral infarction without residual deficits
CPT/HCPCS: 36415; 70450; 70470; 70498; 71010; 80053; 80061; 80307; 81001; 82962; 83036; 83735; 84443; 84484; 85025; 85610; 85730; 92610; 93005; 93306; 93880; 94640; 94664; 96374; 97162; 97166; J1815; J1817; J2060; J7030; Q9967

== ENCOUNTER 2018-03-20 17:24 | Emergency (ER) | END 2018-03-20 18:23 | disposition left against medical advice (07) ==

== ENCOUNTER 2018-04-13 12:58 | Emergency (ER) | END 2018-04-13 13:40 | disposition short-term general hospital (02) ==